=== PATIENT | male | born 1990 | race Caucasian/White ===

== ENCOUNTER 2020-01-29 16:03 | Outpatient (RCR) | payer OTHER, SELFPAY ==
--- NOTE | 2020-01-29 17:20 | PTOPEVAL ---
Thank you for referring Christiano Collado to [facility].? The patient is scheduled to be seen for therapy? ____x/week for ___ weeks. Please review, sign, date and return this plan of care LYNETTE. I agree with and certify that the following plan of care is medically necessary. Referring Physician Date Admitting Provider: Attending Provider: Hayder Downing MD Referring Provider: *PT Outpatient Evaluation Start: 01/29/20 16:14 Freq: Status: Active Protocol: Document 01/29/20 16:15 [facility] (Rec: 01/29/20 17:10 [facility] [id number]) Therapy Assessment Status Assessment Status Assessment Status Evaluation Evaluation Information Problem Diagnosis lumbar radiculopathy Onset 12/28/19 Subjective Information patient reports he has pain in Query Text:As Reported By Patient/ the L buttock down the leg Family to the heel. he reports he has been having this pain for about 1 month. he reports he is scheduled for an MRI of the back tomorrow. he reports he does have a bump above where the pain begins. he reports he has increased pain with transition from sit to stand, getting up off of his back, bending forward, stretching the leg. he reports he is having trouble finding a comfortable position to sit in . he reports he has reduction of symptoms with trunk lean and weight shift off the L hip in sitting. Prior Level of Function Comments Additional Prior Level of Function patient reports prior to a Comments month ago, patient had no issues with the back. he reports he was able to complete all daily work, rec, and functional activities. Pain Assessment Timing of Pain Assessment Timing of Pain Assessment Assessment Pain Scale Pain Scale Used Numeric (1 - 10) Self Report Pain Assessment Left Back Reported Pain Level 6 Pain Radiation Left Leg Lowest Pain Intensity 5 Greatest Pain Intensity 9 Pain Score Pain Score 6: Self Report Interventions Used Interventions Used By Clinicians Activity or ADL's,Exercise Cervical and Lumbar ROM Lumbar ROM Lumbar Flexion Active Waist Query Text:Hands to:
== END 2020-02-29 04:00 | disposition home or self-care (01) ==
LOC: CHSPT 16:03
PROVIDERS: PCP Family Medicine; Visit Provider Family Medicine
DX: M54.17 Radiculopathy, lumbosacral region (principal)
CPT/HCPCS: 97012; 97014; 97110; 97140; 97161; G0283

== ENCOUNTER 2020-01-30 09:17 | Outpatient (CLI) | payer OTHER, SELFPAY ==
--- NOTE | ~2020-01-30 | MR_ITS ---
EXAMINATION: MR lumbar spine wo con DATE: 01/30/2020 10:25 INDICATION: Lumbosacral radiculopathy. Low back pain. TECHNIQUE: Magnetic resonance imaging (MRI) of the lumbar spine was performed without intravenous con trast. Sequences included sagittal T2-weighted FSE, sagittal T2-weighted FS FSE, sagittal T1-weighted FSE, and axial T2-weighted FSE. COMPARISON: None FINDINGS: There is 4 degrees levocurvature of lumbar spine. There is mild chronic anterior wedging of L1 and L2 vertebral bodies. There is 3 mm retrolisthesis of L5 on S1. There are Schmorl's nodes at a ll levels. There is mildly decreased disc height at L5-S1. The distal spinal cord signal intensity is normal. The conus medullaris is at L1. The following disc levels are specifically discussed: L1-L2 through L4-L5: The disc does not extend beyond the endplate margin. There is no facet joint ost eoarthritis. There is no neural foraminal stenosis. There is no central canal stenosis. L5-S1: There is a left central extrusion with mass effect on left S1 nerve root. There is mild bilate ral facet joint osteoarthritis. There is mild left neural foraminal stenosis. There is mild central c anal stenosis. IMPRESSION: 1. Extrusion at L5-S1 with mass effect on left S1 nerve root. Reviewed, dictated and finalized at location B. TENDER
== END 2020-01-30 09:18 | disposition home or self-care (01) ==
LOC: CHSIMG 09:19
PROVIDERS: PCP Family Medicine; Visit Provider Family Medicine
DX: M54.17 Radiculopathy, lumbosacral region (principal)
CPT/HCPCS: 72148

== ENCOUNTER 2020-05-06 16:12 | Outpatient (CLI) | payer OTHER, SELFPAY ==
[2020-05-07 23:23] LABS: SARS-CoV-2 RNA PCR Negative
== END 2020-05-06 16:13 | disposition home or self-care (01) ==
PROVIDERS: PCP Family Medicine
DX: Z01.818 Encounter for other preprocedural examination (principal); Z20.822 Contact with and (suspected) exposure to COVID-19
CPT/HCPCS: C9803; U0003; U0005

== ENCOUNTER 2020-12-15 14:07 | Outpatient (CLI) | payer OTHER, SELFPAY ==
--- NOTE | ~2020-12-15 | XR_ITS ---
XR lumbar spine 2-3V DATE: 12/15/2020 14:35 INDICATION: Back pain TECHNIQUE: AP, lateral, coned lateral lumbosacral views COMPARISON: None FINDINGS: Slight levoscoliosis. Schmorl's nodes are identified in the thoracolumbar area. Normal alig nment of the lumbar spine. No fracture or bone destruction or spondylolisthesis. The lumbar pedicles are intact. Lumbar and lumbosacral interspaces are relatively well preserved. The sacroiliac joints are normal. IMPRESSION: Slight levoscoliosis Reviewed, dictated and finalized at location B. IMPRESSION: Slight levoscoliosis
--- NOTE | ~2020-12-15 | XR_ITS ---
XR_[id number]_CR DATE: 12/15/2020 14:36 INDICATION: Posterior chest/rib pain. No known injury. TECHNIQUE: PA chest. 3 views of each rib cage. COMPARISON: None FINDINGS: Moderate elevation of right leaf of the diaphragm. Normal heart size. No hilar or mediastinal enlargement. No pulmonary infiltrate or consolidation, ple ural effusion or pulmonary vascular congestion or pneumothorax. No left or right rib fracture or bone destruction is noted. IMPRESSION: Moderate elevation right diaphragm; no active cardiac pulmonary disease No evidence of rib fracture or bone destruction Reviewed, dictated and finalized at Location A. Reviewed, dictated and finalized at location B. IMPRESSION: Moderate elevation right diaphragm; no active cardiac pulmonary dis ease No evidence of rib fracture or bone destruction
--- NOTE | ~2020-12-15 | XR_ITS ---
XR thoracic spine 3V DATE: 12/15/2020 14:36 INDICATION: Generalized back pain, posterior chest and rib pain TECHNIQUE: AP, lateral, swimmer views COMPARISON: None FINDINGS: There is minimal dextroscoliosis and minimal degenerative spurring of the thoracic spine. N o fracture or dislocation or bone destruction. The thoracic pedicles are intact. No paraspinal soft t issue thickening. Moderate elevation of the right leaf of the diaphragm. IMPRESSION: Minimal scoliosis and degenerative change Reviewed, dictated and finalized at location B.
== END 2020-12-15 14:08 | disposition home or self-care (01) ==
LOC: CHSIMG 14:10
PROVIDERS: PCP Family Medicine; Visit Provider Physician Assistant
DX: M54.6 Pain in thoracic spine (principal); M54.9 Dorsalgia, unspecified
CPT/HCPCS: 71111; 72072; 72100

== ENCOUNTER 2020-12-30 16:18 | Outpatient (RCR) | payer OTHER, SELFPAY ==
--- NOTE | 2021-01-06 13:57 | PTOPEVAL ---
Thank you for referring Christiano Collado to [facility].? The patient is scheduled to be seen for therapy? ____x/week for ___ weeks. Please review, sign, date and return this plan of care LYNETTE. I agree with and certify that the following plan of care is medically necessary. Referring Physician Date Admitting Provider: Attending Provider: Khloe Buckner DO Referring Provider: *PT Outpatient Evaluation Start: 12/30/20 16:26 Freq: Status: Active Protocol: Document 12/30/20 16:27 [facility] (Rec: 12/30/20 17:42 [facility] [id number]) Therapy Assessment Status Assessment Status Assessment Status Evaluation Evaluation Information Problem Diagnosis segmental thoracic and rib pain Onset 12/23/20 Additional Evaluation Detail oswestry = 16% functionally declined Subjective Information patient reports he has been Query Text:As Reported By Patient/ having L sides thoracic/rib Family pain. he reports he has most pain waking up. he reports he was having spasms in the ribs/ muscles of the sides. he reports he got a new mattress but this has not helped. he reports he has been on extensive medication (steriods , mm relaxors, and anti- inflamatories). he reports the pain is less and less frequent now. patient reports no change in activity lately. he reports no specific or consistent sleeping pattern. he reports he is at time woken up with pain. Prior Level of Function Comments Additional Prior Level of Function patient reports prior to a few Comments months ago, no issues with mid back or rib pain. Pain Assessment Timing of Pain Assessment Timing of Pain Assessment Assessment Pain Scale Pain Scale Used Numeric (1 - 10) Self Report Pain Assessment Left Ribs Reported Pain Level 0 Greatest Pain Intensity 5 Pain Score Pain Score 0: Self Report Interventions Used Interventions Used By Clinicians Heat,Medication,Rest Cervical and Lumbar ROM Lumbar ROM Lumbar Flexion Active Floor Query Text:Hands to: Lumbar Extension (0-40) 30 Query Text:Active in Degrees Lumbar Lateral Flexion Right (0-40) 40 Query Text:Active in Degrees Sol
--- NOTE | 2021-01-15 16:56 | PTOPEVAL ---
Thank you for referring Christiano Collado to [facility] [place].? The patient is scheduled to be seen for therapy? ____x/week for ___ weeks. Please review, sign, date and return this plan of care LYNETTE. I agree with and certify that the following plan of care is medically necessary. Referring Physician Date Admitting Provider: Attending Provider: Khloe Buckner DO Referring Provider: *PT Outpatient Evaluation Start: 12/30/20 16:26 Freq: Status: Active Protocol: Document 01/15/21 16:08 [facility] (Rec: 01/15/21 16:55 [facility] [id number]) Therapy Assessment Status Assessment Status Assessment Status Discharge Evaluation Information Problem Diagnosis segmental thoracic and rib pain Onset 12/23/20 Additional Evaluation Detail oswestry = 2% functionally declined Subjective Information patient reports he feels Query Text:As Reported By Patient/ Great this ate. he reports no Family pain in the upper/middle back or ribs. Pain Assessment Timing of Pain Assessment Timing of Pain Assessment Assessment Self Report Self Report Pain Level 0 Pain Score Pain Score 0: Self Report Upper Extremity Range of Motion General Upper Extremity Range of Motion Reason Not Measured WFL/Left,WFL/Right Upper Extremity Muscle Strength Testing General Upper Extremity Strength Reason Not Measured WNL/Left,WNL/Right Gross Upper Extremity Strength Comments 5/5 bilaterally Palpation Assessment Palpation Palpation no tenderness to palpation of the thoracic spine or ribs this date. patient presents with improved tissue extensibility and improved pa glides mobility of the thoracic spine. General Exercise General Exercises Exercise Description -UBE level 3, 10 minutes (5 Query Text:Record Sets, Reps, fwd, 5 bwd) to improve Resistance, and Position thoracic mobility and increase tissue extensibility prior to manual therapy and flexibility exercises. -open book stretch 12/28 bilat -thread the needle stretch bilat -crossbody stretch 12/28 bilat -doorway stretch 5 x10 seconds -re-evaluation 5 minutes Manual Therapy Manual Therapy Treatment Comments -15 minutes mtt focusing grade Query Text:Include Technique and 3-4 thoracic and L rib mobs.
== END 2021-01-15 10:03 | disposition home or self-care (01) ==
LOC: CHSPT 16:18
PROVIDERS: Visit Provider Family Medicine
DX: M99.08 Segmental and somatic dysfunction of rib cage (principal); M99.02 Segmental and somatic dysfunction of thoracic region; M54.6 Pain in thoracic spine
CPT/HCPCS: 97110; 97140; 97161

== ENCOUNTER 2021-08-04 08:08 | Outpatient (CLI) | payer OTHER, SELFPAY ==
[2021-08-04 09:10] LABS: Hemoglobin A1C 5.5 % (<5.7)
[2021-08-04 09:25] LABS: Alanine Aminotransferase 37 U/L (16-63); Albumin Level 3.8 g/dL (3.4-5.0); Alkaline Phosphatase 116 U/L (46-116); Anion Gap 7 mmol/L (8-16); Aspartate Amino Transferase 19 U/L (15-37); Bilirubin,Total 0.4 mg/dL (0.00-1.00); Blood Urea Nitrogen 18 mg/dL (7-18); Calcium 9.1 mg/dL (8.5-10.1); Carbon Dioxide 30 mmol/L (21-32); Chloride 105 mmol/L (98-108); Cholesterol 105 mg/dL (0-200); Estimated Glomerular Filt Rate > 60; Glucose 89 mg/dL (70-99); HDL Direct 36 mg/dL (40-60); LDL Cholesterol Calculated 48 mg/dL (<130); Osmolality Calculated 294 mOsm/kg (285-295); Potassium 4.1 mmol/L (3.5-5.1); Sodium 142 mmol/L (136-145); Thyroid Stimulating Hormone 2.35 uIU/mL (0.36-3.74); Total Protein 7.5 g/dL (6.4-8.2); Triglycerides 107 mg/dL (0-150)
[2021-08-04 10:51] LABS: Creatinine Urine 246.94 mg/dL (40-278); MALB Creatinine Ratio 9.1 mg/g (0-30); Microalbumin Urine Random 22.7 mg/L
[2021-08-07 07:29] LABS: Testosterone Total 284 ng/dL (250-1100)
== END 2021-08-04 08:09 | disposition home or self-care (01) ==
LOC: CHSLAB 08:11
PROVIDERS: PCP Family Medicine; Visit Provider Family Medicine
DX: N46.9 Male infertility, unspecified (principal); E11.9 Type 2 diabetes mellitus without complications
CPT/HCPCS: 36415; 80053; 80061; 82043; 83036; 84403; 84443

== ENCOUNTER 2021-08-05 08:02 | Outpatient (CLI) | payer OTHER, SELFPAY ==
--- NOTE | ~2021-08-05 | US_ITS ---
US abdomen complete EXAMINATION: US Abdomen Complete INDICATION: Right upper quadrant pain PROCEDURE: Realtime High Resolution abdomen ultrasound. COMPARISON: CT dated 04/28/2018 FINDINGS: Gallbladder within normal limits. No gallstones, pericholecystic fluid, gallbladder wall t hickening or biliary dilatation. Common bile duct measures 4 mm. Liver echotexture is increased, consistent with fatty infiltration.. Pancreas within normal limits. Pancreatic tail is obscured by bowel gas. Spleen is unremarkeable. Renal echotexture is within norm al limits bilaterally without hydronephrosis, contour deforming mass or renal stone. Right kidney sally sures 12.1 cm. Left kidney measures 11.3 cm. Visualized aspects of the aorta and IVC are within normal limits. Portal vein is patent. No sonograph ic Ramsey's sign indicated by the technologist. IMPRESSION: 1: Hepatic steatosis. Reviewed, dictated and finalized at location A. IMPRESSION: 1: Hepatic steatosis.
== END 2021-08-05 08:03 | disposition home or self-care (01) ==
LOC: CHSIMG 08:03
PROVIDERS: PCP Family Medicine; Visit Provider Family Medicine
DX: R10.11 Right upper quadrant pain (principal)
CPT/HCPCS: 76700

== ENCOUNTER 2021-09-28 08:17 | Outpatient (CLI) | payer OTHER, SELFPAY ==
[2021-09-28 08:36] LABS: Hematocrit 42.9 % (40.0-54.0); Hemoglobin 14.2 g/dL (14.0-18.0)
[2021-09-28 08:58] LABS: Thyroid Stimulating Hormone 2.83 uIU/mL (0.36-3.74)
[2021-10-01 09:12] LABS: Testosterone Total 281 ng/dL (250-1100)
[2021-10-01 13:15] LABS: FSH 6.7 mIU/mL (1.6-8.0); LH 7.7 mIU/mL (1.5-9.3); Prolactin 6.8 ng/mL (***)
[2021-10-03 22:11] LABS: Estradiol, Ultrasensitive 13 pg/mL (< OR = 29)
== END 2021-09-28 08:18 | disposition home or self-care (01) ==
LOC: CHSLAB 08:19
PROVIDERS: PCP Family Medicine; Visit Provider Urology
DX: E29.1 Testicular hypofunction (principal)
CPT/HCPCS: 36415; 82670; 83001; 83002; 84146; 84403; 84443; 85014; 85018

== ENCOUNTER 2022-04-30 08:31 | Outpatient (CLI) | payer OTHER, SELFPAY ==
[2022-04-30 09:07] LABS: Hemoglobin A1C 5.2 % (<5.7)
[2022-04-30 09:20] LABS: Alanine Aminotransferase 47 U/L (16-63); Albumin Level 3.6 g/dL (3.4-5.0); Alkaline Phosphatase 92 U/L (46-116); Anion Gap 7 mmol/L (8-16); Aspartate Amino Transferase 22 U/L (15-37); Bilirubin,Total 0.2 mg/dL (0.00-1.00); Blood Urea Nitrogen 17 mg/dL (7-18); Calcium 8.6 mg/dL (8.5-10.1); Carbon Dioxide 30 mmol/L (21-32); Chloride 105 mmol/L (98-108); Cholesterol 127 mg/dL (0-200); Estimated Glomerular Filt Rate > 60; Glucose 99 mg/dL (70-99); HDL Direct 26 mg/dL (40-60); LDL Cholesterol Calculated 53 mg/dL (<130); Osmolality Calculated 295 mOsm/kg (285-295); Potassium 4.4 mmol/L (3.5-5.1); Sodium 142 mmol/L (136-145); Total Protein 6.7 g/dL (6.4-8.2); Triglycerides 238 mg/dL (0-150)
== END 2022-04-30 08:32 | disposition home or self-care (01) ==
LOC: CHSLAB 08:34
PROVIDERS: PCP Family Medicine; Visit Provider Family Medicine
DX: E78.5 Hyperlipidemia, unspecified (principal)
CPT/HCPCS: 36415; 80053; 80061; 83036